=== PATIENT | male | born 1950 | race Caucasian/White ===

== ENCOUNTER → 2019-06-12 | Outpatient (CLI) | payer MEDICARE, MEDICAID ==
--- NOTE | 2019-06-12 16:42 | PCVCIMAG ---
EXAM: BILATERAL LOWER EXTREMITY ARTERIAL DUPLEX INDICATION: Peripheral Arterial Disease. Leg pain. FINDINGS: Right Leg: Common femoral artery is patent. Moderate stenosis origin profunda femoral artery. Occlusion throughout the superficial femoral artery and popliteal artery. Mid and distal popliteal artery refills. Occlusion of the anterior and posterior tibial arteries. Peroneal artery is patent. Left Leg: Common femoral profunda femoral arteries are patent. 70% stenosis mid ho-chunk superficial femoral artery. Occlusion of the distal ho-chunk superficial femoral artery and upper ho-chunk popliteal artery. Refilling of the mid/distal popliteal artery. Occlusion throughout the posterior tibial artery. The anterior tibial and peroneal arteries are patent. IMPRESSION: Occlusion throughout the ho-chunk right superficial femoral artery and upper right popliteal artery. Occlusion of the right anterior and posterior tibial arteries. Occlusion of the distal ho-chunk left superficial femoral artery and upper left popliteal artery. Occlusion of the left posterior tibial artery. LOC:[place] [id number]
== END | disposition home or self-care (01) ==
LOC: PCVCIMAG 11:36
DX: I73.9 Peripheral vascular disease, unspecified (principal); R09.89 Other specified symptoms and signs involving the circulatory and respiratory systems
CPT/HCPCS: 93925